=== PATIENT | female | born 1970 | race African-American/Black ===

== ENCOUNTER 2019-12-06 09:54 | Observation (INO) | payer MEDICAID, OTHER ==
--- OUTSIDE RECORDS SUMMARY | 2019-12-06 10:06 | XMS REPORT | Summary of Care ---
:1970 Author Organization [facility] Address [address] [place] [address] Care Team Providers Name Role Phone Darcie Villatoro Primary Care Provider Crys Grider-Attributed Pcp Reason for Referral MRI/CAT/PET Scan (Routine) Status Reason Specialty Diagnoses / Referred By Referred To Procedures Contact Contact Authorized Radiology Diagnoses Generalized abdominal pain Ria Anaya MD [address] Procedures CT ABDOMEN PELVIS WITH IV CONTRAST [address] [facility] [address] [place], [place] [id number] [place] [phone] Phone: Reason for Visit Reason Comments Follow Up liquid diet, sharp abd pain Encounter Details Date Type Department Care Team Description 12/04/2019 Office Visit Ria Leiva MD Diarrhea, unspecified type (Primary Dx); Gastroenterology/Hepa [address] [address] [place] [address] [address] [facility] [phone] [place] [address] [phone] Allergies Active Allergy Reactions Severity Noted Date Comments Morphine Other 11/23/2017 Procaine Other 11/04/2009 Sweats, shakes,vomit Oxycodone Unknown Reaction 06/20/2016 Penicillins Unknown Reaction 12/27/2007 documented as of this encounter (statuses as of 12/04/2019) Medications Medication Sig Dispensed Refills Start Date End Date Status nicotine transdermal Place 1 Patch 30 Patch 1 03/29/2018 Active patch-daily (NICODERM onto skin DAILY. CQ) 14 MG/24HR Transdermal PATCH 24 HR Additional Information Patient taking differently: 7 mg Transdermal DAILY, Reported on 07/16/2018 8 :33 AM Ferrous Sulfate (IRON) 325 (65 Take 325 mg by mouth 30 Tab 5 06/13/2018 Active Fe) MG Oral TabIndications: Iron DAILY. deficiency anemia, unspecified iron deficiency anemia type aspirin 81 MG Oral Chew Tab Take 1 Tab by mouth 30 Tab 0 02/17/2019 Active DAILY. albuterol (PROVENTIL, VENTOLIN) 3 mL by 100 vial 2 03/25/2019 Active (2.5 MG/3ML) 0.083% Inhalation Inhalation-SVN route Nebu SolnIndications: Bullous EVERY SIX HOURS emphysema (HCC), Stage 2 NEEDED (sob/wheeze). moderate COPD by GOLD classification (HCC) atorvastatin (LIPITOR) 20 MG Take 1 Tab by mouth 90 Tab 1 03/25/2019 Active Oral TabIndications: Pure DAILY. Appt needed hypercholesterolemia for further refills buPROPion (WELLBUTRIN XL) 300 MG Take 1 Tab by mouth 90 Tab 1 03/25/2019 Active Oral TABLET SR 24 HRIndications: DAILY. Smoking pantoprazole (PROTONIX) 40 MG Take 1 Tab by mouth 90 Tab 1 03/25/2019 Active Oral Tab EC DAILY. azithromycin (ZITHROMAX) 250 MG Take 2 pills on the 6 Tab 0 08/22/2019 Active Oral Tab first day and 1 pill each day for 4 days albuterol HFA (VENTOLIN HFA) 108 Take 2 Puffs by 1 Inhaler 5 08/29/2019 Active (90 Base) MCG/ACT Inhalation inhalation EVERY SIX Aero SolnIndications: Bullous HOURS NEEDED (as emphysema (HCC), Stage 2 needed for wheeze). moderate COPD by GOLD classification (HCC) azelastine (ASTELIN) 0.1 % Nasal INSTILL 1 SPRAY INTO 30 mL 1 10/15/2019 Active SolutionIndications: Postnasal EACH NOSTRIL TWICE A drip DAY lisinopril (PRINIVIL, ZESTRIL) Take 1 Tab by mouth 90 Tab 0 11/13/2019 Active 10 MG Oral Tab DAILY. Needs office follow up for any further refills budesonide-formoterol fumarate Take 2 INHL by 3 Inhaler 1 11/17/2019 Active (SYMBICORT) 160-4.5 MCG/ACT inhalation TWICE Inhalation AerosolIndications: DAILY. Stage 2 moderate COPD by GOLD classification (HCC) albuterol (PROVENTIL, VENTOLIN) 3 mL by 360 mg 3 11/17/2019 Active (2.5 MG/3ML) 0.083% Inhalation Inhalation-SVN route Nebu Soln EVERY SIX HOURS. Shortness of breath/wheeze documented as of this encounter (statuses as of 12/04/2019) Active Problems Problem Noted Date Elevated LFTs 04/19/2018 Dense breasts 04/10/2018 Cervical radiculopathy 06/12/2017 Left shoulder pain 06/12/2017 Rheumatoid factor positive 06/24/2016 Nodule of apex of right lung 04/27/2016 Overview: Nodular opacities; repeat chest CT recommended 10/2016 Synovial cyst of right popliteal space 04/27/2016 Suprapatellar bursitis of right knee 04/27/2016 Bullous emphysema 04/28/2014 COPD, moderate 04/17/2012 Esophageal reflux 12/27/2007 Other and unspecified hyperlipidemia 12/27/2007 Panic disorder without agoraphobia 12/27/2007 Smoking Arthropathy Umbilical hernia without obstruction and without gangrene documented as of this encounter (statuses as of 12/04/2019) Resolved Problems Problem Noted Date Resolved Date Chest pain 08/08/2017 05/29/2018 Overview: Stress echocardiogram 05/15/2014 FINAL IMPRESSION: Decreased exercise tolerance. This test is equivocal for exercise induced ischemia by symptoms and LIKELY negative by ECHO and ECG criteria at target heart rate and low workload Clinical correlation advised Holter 06/08/2014 INDICATION: Palpitations. ? FINDINGS: 1. Normal sinus rhythm. Minimum heart rate of 68 beats per minute, maximum is 141 beats per minute. 2. Less than 1% of the beats were extra ventricular beats. 3. Less than 1% of the beats were extra supraventricular beats. 4. No atrial fibrillation, ventricular tachycardia, pauses or blocks were noted. 5. The patient reported symptoms of chest pain and shortness of breath that did not correlate with any arrhythmias. ? SUMMARY: 1. Normal Holter. 2. Symptoms reported do not correlate with any arrhythmias. ? Wrist pain, right 11/05/2014 03/20/2016 Pneumonia due to other specified organism(483.8) 04/09/2013 09/29/2013 Hyperthyroidism 03/27/2013 06/21/2016 Arrhythmia 12/09/2012 03/06/2016 Chronic airway obstruction, not elsewhere classified 12/27/2007 04/17/2012 Other spontaneous pneumothorax 12/27/2007 03/06/2016 Other chest pain 12/27/2007 04/17/2012 OTHER EMPHYSEMA 03/07/2005 04/17/2012 Normocytic anemia 07/13/2016 Underweight due to inadequate caloric intake 05/29/2018 documented as of this encounter (statuses as of 12/04/2019) Immunizations Name Administration Dates Next Due Influenza (IM) Preservative Free 05/22/2018, 07/09/2017 PNEUMOCOCCAL POLYSACCHARIDE VACCINE 07/09/2017 documented as of this encounter Social History Tobacco Use Types Packs/Day Years Used Date Current Every Day Smoker Cigarettes 2 30 Smokeless Tobacco: Never Used Comments: 1-2 packs per day Alcohol Use Drinks/Week oz/Week Comments Yes states 6 pack per week Sex Assigned at Date Recorded Not on file documented as of this encounter Last Filed Vital Signs Vital Sign Reading Time Taken Comments Blood Pressure 146/100 12/04/2019 10:47 AM EDT Pulse 84 12/04/2019 10:47 AM EDT Temperature - - Respiratory Rate - - Oxygen Saturation 99% 12/04/2019 10:47 AM EDT Inhaled Oxygen Concentration - - Weight 52.2 kg (115 lb) 12/04/2019 10:47 AM EDT Height 176.5 cm (5' 9.5") 12/04/2019 10:47 AM EDT Body Mass Index 16.74 12/04/2019 10:47 AM EDT documented in this encounter Patient Instructions Patient InstructionsRia Anaya MD - 12/04/2019 10:40 AM EDT1. bloodwork today 2. Stool studies 3. CT scan of the abdomen: we will try to get this today Ria Anaya MD documented in this encounter Progress Notes Ria Anaya MD - 12/04/2019 10:40 AM EDT PATIENT: Cristina Donohue : 1970 DATE OF SERVICE: 12/04/2019 REFERRING PRACTITIONER: Darcie Villatoro PRIMARY CARE PROVIDER: Darcie Villatoro CHIEF COMPLAINT: Chief Complaint Patient presents with ? Follow Up liquid diet, sharp abd pain Subjective HISTORY OF PRESENT ILLNESS: Cristina Donohue is a 49-y.o. female who presents as a referral from [facility] for abdominal pain. She reports that her symptoms started 2-3 days ago, with severe epigastric and lower abdominal pain, sharp, accompanied by diarrhea. She has been taking peptobismol, without much relief. Denies any fevers/chills, rectal bleeding. No nausea/vomiting. No urinary changes, shortness of breath, chest discomfort, cough. She has been taking in a liquid diet, as solid foods hurt more. Past Medical History: Diagnosis Date ? Anemia of other chronic disease ? Anxiety ? Arrhythmia 12/09/2012 ? Arthritis ? COPD (chronic obstructive pulmonary disease) ([facility]) 04/17/2012 ? Esophageal reflux 12/27/2007 ? Hyperlipidemia 12/27/2007 ? Hyperthyroidism ? Other spontaneous pneumothorax 12/27/2007 Due to bulla ? Panic disorder without agoraphobia 12/27/2007 ? Periodic limb movement Past Surgical History: Procedure Laterality Date ? BRONCHOSCOPY ? CHEST TUBE PLACEMENT (FOR ED USE) for spontaneous pneumothorax ? LEFT HEART CATH,ALLEGRA ERWIN [facility] ? [place] CHEST SURGERY PROCEDURE UNLISTED ? [place] LIGATION,FALLOPIAN TUBE W/ Family History Problem Relation Age of Onset ? Heart Mother CABG ? Kidney Disease Mother nephrectomy ? Diabetes Father ? Hypertension Father ? Heart Father ? Arthritis Father ? Cancer Father throat & stomach ca ? Colon Cancer Father ? Breast Cancer Maternal Aunt Current Outpatient Medications Medication Sig ? albuterol (PROVENTIL, VENTOLIN) (2.5 MG/3ML) 0.083% Inhalation Nebu Soln 3 mL by Inhalation-SVN route EVERY SIX HOURS NEEDED (sob/wheeze). ? albuterol (PROVENTIL, VENTOLIN) (2.5 MG/3ML) 0.083% Inhalation Nebu Soln 3 mL by Inhalation-SVN route EVERY SIX HOURS. Shortness of breath/wheeze ? albuterol HFA (VENTOLIN HFA) 108 (90 Base) MCG/ACT Inhalation Aero Soln Take 2 Puffs by inhalation EVERY SIX HOURS NEEDED (as needed for wheeze). ? aspirin 81 MG Oral Chew Tab Take 1 Tab by mouth DAILY. ? atorvastatin (LIPITOR) 20 MG Oral Tab Take 1 Tab by mouth DAILY. Appt needed for further refills ? azelastine (ASTELIN) 0.1 % Nasal Solution INSTILL 1 SPRAY INTO EACH NOSTRIL TWICE A DAY ? azithromycin (ZITHROMAX) 250 MG Oral Tab Take 2 pills on the first day and 1 pill each day for 4 days ? budesonide-formoterol fumarate (SYMBICORT) 160-4.5 MCG/ACT Inhalation Aerosol Take 2 INHL byinhalation TWICE DAILY. ? buPROPion (WELLBUTRIN XL) 300 MG Oral TABLET SR 24 HR Take 1 Tab by mouth DAILY. ? Ferrous Sulfate (IRON) 325 (65 Fe) MG Oral Tab Take 325 mg by mouth DAILY. ? lisinopril (PRINIVIL, ZESTRIL) 10 MG Oral Tab Take 1 Tab by mouth DAILY. Needs office followup for any further refills ? nicotine transdermal patch-daily (NICODERM CQ) 14 MG/24HR Transdermal PATCH [address] 1 Patch onto skin DAILY. (Patient taking differently: Place 7 mg onto skin DAILY.) ? pantoprazole (PROTONIX) 40 MG Oral Tab EC Take 1 Tab by mouth DAILY. No current facility-administered medications for this visit. Allergies Allergen Reactions ? Morphine Other ? Novacaine [Procaine] Other Sweats, shakes,vomit ? Oxycodone Unknown Reaction ? Penicillins Unknown Reaction Social History Socioeconomic History ? Marital status: Spouse name: Not on file ? Number of children: Not on file ? Years of education: Not on file ? Highest education level: Not on file Occupational History ? Not on file Social Needs ? Financial resource strain: Not on file ? Food insecurity Worry: Not on file Inability: Not on file ? Transportation needs Medical: Not on file Non-medical: Not on file Tobacco Use ? Smoking status: Current Every Day Smoker Packs/day: 2.00 Years: 30.00 Pack years: 60.00 Types: Cigarettes ? Smokeless tobacco: Never Used ? Tobacco comment: 1-2 packs per day Substance and Sexual Activity ? Alcohol use: Yes Comment: states 6 pack per week ? Drug use: Yes Frequency: 2.0 times per week Types: Prescription, Marijuana ? Sexual activity: Yes Partners: Male Lifestyle ? Physical activity Days per week: Not on file Minutes per session: Not on file ? Stress: Not on file Relationships ? Social connections Talks on phone: Not on file Gets together: Not on file Attends oriental orthodox service: Not on file Active member of club or organization: Not on file Attends meetings of clubs or organizations: Not on file Relationship status: Not on file ? Intimate partner violence Fear of current or ex partner: Not on file Emotionally abused: Not on file Physically abused: Not on file Forced sexual activity: Not on file Other Topics Concern ? Not on file Social History Narrative ? Not on file REVIEW OF SYSTEMS: All remaining review of systems was negative except for as noted in the history of present illness/subjective. Objective PHYSICAL EXAMINATION: VITALS: BP (!) 146/100 (BP Location: Right arm, Patient Position: Sitting) | Pulse 84 | Ht 5' 9.5" (1.765 m) | Wt 115 lb (52.2 kg) | SpO2 99% | BMI 16.74 kg/m Body mass index is 16.74 kg/m. GENERAL: alert, oriented, mildly distressed HEENT: No scleral icterus, MMM Psych: Affect normal Neck: no lymphadenopathy LUNGS: clear to auscultation bilaterally. HEART: regular rhythm, no murmurs, no gallops, no rubs. ABDOMEN: general exam: mildly distended, guarding, mild rebound tenderness Extrmities: no edema Skin: clear Neuro: gait normal, a&o x 3 RECTAL: exam deferred. IMPRESSION: ICD-9-CM ICD-10-CM 1. Diarrhea, unspecified type 787.91 R19.7 CBC NO DIFFERENTIAL COMPREHENSIVE METABOLIC PANEL AMYLASE LIPASE C. DIFFICILE (STOOL) STOOL CULTURE 2. Generalized abdominal pain 789.07 R10.84 CBC NO DIFFERENTIAL COMPREHENSIVE METABOLIC PANEL AMYLASE LIPASE C. DIFFICILE (STOOL) STOOL CULTURE CT ABDOMEN PELVIS WITH IV CONTRAST Plan PLAN: 1. bloodwork 2. Stool studies 3. CT abd/pelvis today Follow up: pending above results Author: Ria Anaya MD 12/04/2019 11:38 documented in this encounter Plan of Treatment Date Type Specialty Care Team Description 12/04/2019 Ancillary Procedure Radiology 01/06/2020 Office Visit Pulmonary Jaclyn Carvalho MD [address] [place] [address] [phone] Name Type Priority Associated Diagnoses Date/Time CBC NO DIFFERENTIAL Lab Routine Generalized abdominal 12/04/2019 11:17 AM pain EDT Diarrhea, unspecified type COMPREHENSIVE METABOLIC Lab Routine Generalized abdominal 12/04/2019 11:17 AM PANEL pain EDT Diarrhea, unspecified type AMYLASE Lab Routine Generalized abdominal 12/04/2019 11:17 AM pain EDT Diarrhea, unspecified type LIPASE Lab Routine Generalized abdominal 12/04/2019 11:17 AM pain EDT Diarrhea, unspecified type Name Type Priority Associated Diagnoses Order Schedule C. DIFFICILE (STOOL) Lab Routine Generalized abdominal 1 Occurrences starting pain 12/04/2019 until Diarrhea, unspecified 06/01/2020 type STOOL CULTURE Lab Routine Generalized abdominal 1 Occurrences starting pain 12/04/2019 until Diarrhea, unspecified 06/01/[address] ABDOMEN PELVIS WITH Imaging Routine Generalized abdominal Expected: 04/2020, IV CONTRAST pain Expires: 12/03/2020 Health Maintenance Due Date Last Done Comments DTaP/Tdap/Td Vaccines (1981 Tdap) MAMMOGRAM (SCREENING) 04/03/2019 04/03/2018, 02/24/2014, 11/04/2008 DEPRESSION SCREENING 03/24/2020 03/24/2019, 04/28/2014 INFLUENZA VACCINE (Season 04/27/2020 05/22/2018, 07/09/2017 Ended) PAP SMEAR 06/30/2022 06/30/2019, 10/24/2012, 12/06/2004 LIPID DISORDER SCREENING 04/11/2024 04/11/2019, 03/25/2019, 03/08/2018, Additional history exists PNEUMOCOCCAL 0-64 YRS Completed 07/09/2017 HEPATITIS A IMMUNIZATION Aged Out No longer eligible SERIES based on patient's age to complete this topic HPV IMMUNIZATION SERIES Aged Out No longer eligible based on patient's age to complete this topic MENINGOCOCCAL VACCINE IMM Aged Out No longer eligible based on patient's age to complete this topic documented as of this encounter Goals Goal Patient Goal Associated Recent Patient-Stated? Author Type Problems Progress Smoking COPD No Jory Villatoro MD Note: This is an individualized treatment (COPD) goal for Cristina Donohue: Quit smoking immediately! Your provider has information and resources that may help you to quit. Keep immunizations current Lifestyle No Darcie Villatoro MD Note: This is an individualized lifestyle goal for Cristina Donohue: Please be sure to keep up-to-date on recommended immunizations. For example, this would include a yearly influenza vaccine. Immunization status can be seen by looking at the Health Maintenance sections of your [facility], Plan of Care, and any After Visit Summaries. Take all prescribed medications as Self-management No Darcie Villatoro MD directed Note: This is an individualized self-management goal for Cristina Starkeywalski: Please take all prescribed medications as directed. 1. Do not skip doses. If you cannot afford your medications, talk with your doctor. 2. Use a pill reminder system such as a pill box if needed. Your pharmacist can help you with this. 3. Contact your Pharmacy 5 days before your medication runs out. If you cannot take your medications for any reasons, talk with your doctor. 4. Please bring all of your medication bottles and inhalers (or a list of all your medications/inhalers) with you to every visit. Potential barriers to meeting all of your care plan goals will continue to be addressed on an ongoing basis. documented as of this encounter Results Not on filedocumented in this encounter Visit Diagnoses Diagnosis Generalized abdominal pain Abdominal pain, generalized Diarrhea, unspecified type documented in this encounter (Home) [address] [facility] [phone] [place], [place] (Work) [id number] documented as of this encounter
[2019-12-06] MEDS ORDERED: NS 0.9% 1000 ML** 1,000 ML IV ONE (10:18)
[2019-12-06] MEDS ORDERED: fentaNYL* 50 MCG/ML 2 ML VIAL (100 MCG VIAL) IV SLOW PU ONE (10:19)
[2019-12-06] MEDS ORDERED: metroNIDAZOLE IV 500 MG/100ML* 500 MG/100 ML BAG IVPB ONE (10:20)
[2019-12-06] MEDS ORDERED: Ciprofloxacin 400MG IVPREMIX(* 400 MG/200 ML BAG IVPB ONE (10:20)
--- NOTE | 2019-12-06 10:21 | ED ---
Abdominal Pain/Female - HPI Summary HPI Summary: This pt is a 49 Y/O F presenting to [facility] with a CC of RUQ abdominal pain that is rated an 8/10 in severity. She states that the pain started on 11/29/2019 and has been increasing in severity since. She states that on 12/04/2019 she went to a clinic in [place] and received blood tests and a CT scan which were positive for appendicitis. She states that she avoided the hospital and hoped that the pain would disappear but it did not. She also states having R sided radiated back pain, nausea, chills, diarrhea, and decreased appetite. She states that the last time she states that she drank water today. She denies any fevers, headaches, SOB, CP, and myalgia. She states that she smokes tobacco and drinks 2-3 cans per day. She has no aggravating or alleviating factors. She has a PMHx of HTN and COPD. - History of Current Complaint Chief Complaint: Aparna Stated Complaint: FLANK PAIN PER PT Time Seen by Provider: 12/06/19 10:06 Hx Obtained From: Patient Hx Last Menstrual Period: ended 07/07/18 ?: No Onset/Duration: Sudden Onset, Lasting Weeks - 1, Still Present Timing: Constant Severity Initially: Mild Severity Currently: Severe Pain Intensity: 8 Pain Scale Used: 0-10 Numeric Location: Discrete At: RUQ Radiates: Yes Radiates to: Back Aggravating Factor(s): Nothing Alleviating Factor(s): Nothing Associated Signs and Symptoms: Positive: Negative - headaches, SOB, and myalgia , Back Pain, Nausea, Diarrhea, Other: - decreased appetite and chills. Negative : Fever, Chest Pain Allergies/Adverse Reactions: Allergies Allergy/AdvReac Type Severity Reaction Status Date / Time morphine Allergy See Comment Verified 12/06/19 09:59 Penicillins Allergy Hives/Diff. Verified 12/06/19 09:59 Breathing/I tching novacaine Allergy Fever Uncoded 10/20/19 09:24 Home Medications: Home Medications Budesonide/Formote 160/4.5(NF) [Symbicort 160/4.5 (NF)] 2 puff INH BID 06/13/16 [History Confirmed 02/20/19] Albuterol HFA INHALER* [Ventolin HFA Inhaler*] 2 puff INH Q6H PRN 02/06/19 [ History Confirmed 02/20/19] Atorvastatin* [Lipitor 20 MG*] 20 mg PO DAILY 02/06/19 [History Confirmed ] BuPROPion XL* [Bupropion XL*] 300 mg PO DAILY 02/06/19 [History Confirmed ] Pantoprazole TAB * [Protonix TAB*] 40 mg PO DAILY 02/06/19 [History Confirmed ] Lisinopril TAB* [Prinivil TAB 10 MG*] 10 mg PO DAILY #30 tab 02/07/19 [Rx Confirmed 02/20/19] Azelastine 0.1% 1 spray BOTH NARES BID PRN 02/19/19 [History Confirmed 02/20/19] Ferrous Sulfate TAB* 325 mg PO DAILY 02/19/19 [History Confirmed 02/20/19] Naproxen [Naproxen 375 mg tab] 375 mg PO BID PRN 02/19/19 [History Confirmed ] PMH/Surg Hx/FS Hx/Imm Hx Previously Healthy: Yes Endocrine/Hematology History: Reports: Hx Thyroid Disease - Hyperthyroid - no meds for it yet Denies: Hx Diabetes Cardiovascular History: Reports: Hx Angina, Hx Hypercholesterolemia, Hx Hypertension Denies: Hx Myocardial Infarction, Hx Pacemaker/ICD, Hx Peripheral Vascular Disease Respiratory History: Reports: Hx Asthma, Hx Chronic Obstructive Pulmonary Disease (COPD) History: Denies: Hx Chronic Renal Failure, Hx Renal Disease Musculoskeletal History: Denies: Hx Arthritis, Hx Rheumatoid Arthritis, Hx Osteoporosis, Hx Scoliosis Sensory History: Denies: Hx Hearing Aid Neurological History: Reports: Hx Headaches Denies: Other Neuro Impairments/Disorders Psychiatric History: Denies: Hx Panic Disorder - Surgical History Surgery Procedure, Year, and Place: tubal ligation -. COLLAPSED LUNG 1997. cardiac cath Infectious Disease History: No Infectious Disease History: Denies: Hx Hepatitis, Hx Human Immunodeficiency Virus (HIV), Hx of Known/ Suspected MRSA, Hx Shingles, Hx Tuberculosis, Hx Known/Suspected VRE, History Other Infectious Disease, Traveled Outside the [place] in Last 30 Days - Family History Known Family History: Positive: Hypertension Family History: aneurysms - Social History Occupation: Employed Full-time, Retired Lives: Alone Alcohol Use: Weekly Alcohol Amount: 2-3 times/week Hx Substance Use: Yes Substance Use Type: Reports: Marijuana Hx Tobacco Use: Yes Smoking Status (MU): Heavy Every Day Tobacco Smoker Type: Cigarettes Amount Used/How Often: 2 ppd Review of Systems Positive: Chills. Negative: Fever Negative: Chest Pain Negative: Shortness Of Breath Positive: Abdominal Pain - RUQ, Diarrhea, Nausea, Other - decreased appetite Negative: Myalgia Negative: Headache All Other Systems Reviewed And Are Negative: Yes Physical Exam - Summary Physical Exam Summary: Constitutional: Well-developed, Well-nourished, Alert. (-) Distressed Skin: Warm, Dry HENT: Normocephalic; Atraumatic Eyes: Conjunctiva normal Neck: Musculoskeletal ROM normal neck. (-) JVD, (-) Stridor, (-) Tracheal deviation Cardio: Rhythm regular, rate normal, Heart sounds normal; Intact distal pulses; The pedal pulses are 2+ and symmetric. Radial pulses are 2+ and symmetric. (-) Murmur Pulmonary/Chest wall: Effort normal. (-) Respiratory distress, (-) Wheezes, (-) Rales Abd: Soft, Tender just lateral to the umbilicus on the right without rebound or guarding. (-) Distension, (-) Rebound Musculoskeletal: (-) Edema Lymph: (-) Cervical adenopathy Neuro: Alert, Oriented x3 Psych: Mood and affect Norm Triage Information Reviewed: Yes Vital Signs On Initial Exam: Initial Vitals Temp Pulse Resp BP Pulse Ox 97.8 F 92 16 151/116 100 12/06/19 09:57 12/06/19 09:57 12/06/19 09:57 12/06/19 09:57 12/06/19 09:57 Vital Signs Reviewed: Yes Procedures - Sedation Patient Received Moderate/Deep Sedation with Procedure: No Diagnostics - Vital Signs Vital Signs Temp Pulse Resp BP Pulse Ox 12/06/19 09:57 97.8 F 92 16 151/116 100 - Laboratory Result Diagrams: 12/06/19 10:47 12/06/19 10:47 Lab Statement: Any lab studies that have been ordered have been reviewed, and results considered in the medical decision making process. - Ultrasound Gallbladder US Ultrasound Interpretation Completed By: Radiologist Summary of Ultrasound Findings: Negative right upper quadrant ultrasound. Negative for biliary dilatation. Negative for cholelithiasis. No conspicuous stones. within the visualized segment of the nondilated common bile duct. ED physician has reviewed this report. Re-Evaluation - Re-Evaluation First Eval Re-Evaluation Time: 10:33 Change: Unchanged Comment: CT image was interpreted again by [facility] [employer] who took the pt's CT. The CT did not show any appendicitis but did show pelvic free fluid. Abdominal Pain Fem Course/Dx - Course Course Of Treatment: Patient checked in with possible appendicitis. Patient was worked up as an outpatient through [facility] and supposedly had a CT scan which showed appendicitis. Due to that, labs were performed and patient was given empiric antibiotics with ciprofloxacin and Flagyl. However, when I called [facility] to discuss CT findings she had a normal CT outside of mild free pelvic fluid. Patient had blood workperformed which showed a lipase of 280. Patient had an ultrasound which showed no evidence of gallstones. Patient is likely suffering from alcohol pancreatitis. Patient already failed outpatient management and will be admitted to the hospital for further workup and treatment. - Diagnoses Provider Diagnoses: Pancreatitis, Alcohol abuse - Provider Notifications Discussed Care Of Patient With: Christophe Berg Time Discussed With Above Provider: 13:05 Instructed by Provider To: Admit As Inpatient Admit/Transition Orders Completed By ED Provider: Yes Discharge ED - Sign-Out/Discharge Documenting (check all that apply): Patient Departure - Discharge Plan Condition: Good Disposition: ADMITTED TO [facility] Referrals: Darcie Villatoro MD [Primary Care Provider] - - Billing Disposition and Condition Condition: GOOD Disposition: Admitted to [facility] - Attestation Statements Document Initiated by Kristopher: Yes Documenting Scribe: Spenser Monique Provider For Whom Kristopher is Documenting (Include Credential): Kin Driver MD Scribe Attestation: Spenser Hatch, scribed for Kin Driver MD on 12/06/19 at 1325. Scribe Documentation Reviewed: Yes Provider Attestation: The documentation as recorded by the Spenser oleary accurately reflects the service I personally performed and the decisions made by me, Kin Driver MD Status of Scribe Document: Viewed
[2019-12-06 10:54] LABS: ABS Eosinophils 0.1 10^3/ul (0-0.6); ABS Lymphocytes 1.1 10^3/ul (1.0-4.8); ABS Monocytes 0.4 10^3/ul (0-0.8); ABS Neutrophils 1.1 10^3/ul (1.5-7.7); Eosinophil % 2.4 %; Hematocrit 36 % (35-47); Hemoglobin 12.5 g/dL (12.0-16.0); Lymphocyte % 41.4 %; Mean Corpuscular HGB Conc 35 g/dL (31-36); Mean Corpuscular Hemoglobin 31 pg (27-31); Mean Corpuscular Volume 88 fL (80-97); Mean Platelet Volume 8.4 fL (7.4-10.4); Nucleated Red Blood Cells % 0.2; Platelet Count 114 10^3/uL (150-450); Red Blood Count 4.06 10^6 /uL (3.70-4.87); Red Cell Distribution Width 13 % (10-15); White Blood Count 2.7 10^3/uL (3.5-10.8)
[2019-12-06 11:10] LABS: Albumin 3.7 g/dL (3.2-5.2); Albumin/Globulin Ratio 1.2 (1-3); BUN/Creatinine Ratio 4.8 (8-20); C Reactive Protein 6.54 mg/L (<8.01); Calcium 9.2 mg/dL (8.6-10.3); EGFR African American 123.8 (>60); EGFR Non-African American 102.3 (>60); Potassium 3.2 mmol/L (3.5-5.0); Total Bilirubin 0.6 mg/dL (0.2-1.0); Total Protein 6.7 g/dL (6.4-8.9)
[2019-12-06] MEDS ORDERED: Acetaminophen TAB* 325 MG PO PRN (13:52)
[2019-12-06] MEDS ORDERED: Albuterol 2.5 MG/3 ML NEB.SOL* (0.083%) INH PRN (13:52)
[2019-12-06] MEDS ORDERED: Thiamine INJ* 100 MG/ML 2 ML VIAL IM ONE (14:47)
[2019-12-06] MEDS ORDERED: LORazepam TAB(*) 1 MG PO SCH (15:00)
[2019-12-06 15:06] LABS: Magnesium 1.6 mg/dL (1.9-2.7)
[2019-12-06] MEDS ORDERED: Magnesium Sulfate 2 GM IV* 2 GM/50 ML BAG IVPB ONE (15:12)
[2019-12-06] MEDS: Enoxaparin(*) 40 MG/0.4 ML SYR SUBCUT SCH (15:58)
[2019-12-06] MEDS: HYDROcodone/ACETAMIN 5-325 MG* 1 TAB PO PRN ×2 (15:59→22:16)
[2019-12-06] MEDS: NS 0.9% 1000 ML** 1,000 ML IV SCH (15:59)
[2019-12-06] MEDS: Folic Acid TAB* 1 MG PO SCH (16:38)
--- NOTE | 2019-12-06 16:49 | HP ---
CC: Dr. Villatoro; Dr. Anaya, , [facility] HISTORY AND PHYSICAL: DATE OF ADMISSION: 12/06/19 PROVIDER: Viviane Pettit NP PRIMARY CARE PROVIDER: Dr. Villatoro. ATTENDING PHYSICIAN WHILE IN THE HOSPITAL: Dr. Christophe Berg* (dictated by Viviane Pettit NP). CHIEF COMPLAINT: Abdominal pain. HISTORY OF PRESENT ILLNESS: Ms. Donohue is a 49-year-old female with a past medical history significant for hypertension, hyperlipidemia, COPD, anxiety, GERD, hyperthyroid, and anemia of chronic disease, who presented to the emergency room with complaints of abdominal pain. The patient reports that on Sunday she ate cheese which she reports that she is allergic to. She reports shortly after that she started with vomiting and upper abdominal pain. She reports that the pain got progressively worse. She followed up with her GI doctor, Dr. Anaya, from [facility] on . At that time, she had labs and a CT of the abdomen and pelvis and was placed on a bland diet. She was told that her lipase was over 1000 and was an indication of possible (appendicitis). I suspect this is related to pancreatitis. The patient also reports that she was diagnosed with an ulcer approximately 12 years ago as well. She does report she continues to drink three to four 24-ounce beers 4 to 5 times a week. She reports that her last ingestion of alcohol was on . She does report that she drank her normal dose of alcohol on Sunday. She does report that she has been tolerating a bland diet at home, but continues to have abdominal pain. Due to the continued abdominal pain radiating to her back, she was instructed to come to the emergency room. While in the emergency room, she had routine lab work drawn. She was found to have a lipase of 280. She had an ultrasound of her gallbladder that showed no acute disease. Due to the patient's continued pain and concern for pancreatitis, Hospital Medicine was asked to see and evaluate her for admission. PAST MEDICAL HISTORY: Significant for: 1. Hyperlipidemia. 2. Hypertension. 3. COPD. 4. Anxiety. 5. GERD. 6. Hyperthyroidism. 7. Anemia of chronic disease. 8. History of gastric ulcer. 9. History of spontaneous pneumothorax. PAST SURGICAL HISTORY: 1. Chest tubes for pneumothorax x3. 2. Left heart catheterization. HOME MEDICATIONS: Include: 1. Albuterol nebulizer as needed for shortness of breath. 2. Albuterol inhaler 2 puffs every 6 hours as needed for shortness of breath and wheezing. 3. Pantoprazole 40 mg p.o. daily. 4. Lisinopril 10 mg p.o. daily. 5. Bupropion 300 mg p.o. daily. 6. Atorvastatin 20 mg p.o. daily. 7. Ferrous sulfate 325 mg p.o. daily. 8. Symbicort 160/4.5 two puffs twice daily. 9. Azelastine 0.1% one spray to both nares twice daily p.r.n. ALLERGIES: To MORPHINE, PENICILLINS, and NOVOCAIN. FAMILY HISTORY: Mom had history of an [place] at the age of 55 as well as pulmonary embolism. Father had a stent. Father with diabetes and father with metastatic esophageal cancer. SOCIAL HISTORY: The patient smokes 1-1/2 packs per day. She reports she drinks three to four 24-ounce beers 4 times a week. She does report occasional marijuana use. She is currently unemployed. She lives alone. She is a full code. Surrogate decision maker in the event she is unable to make her own decisions is Darrel Salter, his phone number is [phone], or her daughter, Shae. REVIEW OF SYSTEMS: The patient denies any fever, chills, unintended weight loss , chest pain, or edema. She does report a chronic cough, which is at baseline. No hemoptysis or shortness of breath. She does report some nausea. No vomiting since Sunday. She does report occasional diarrhea and upper epigastric abdominal pain that improved with IV medications in the emergency room. She denies any gross hematuria, dysuria, focal weakness, sensory loss, visual complaints. She does report occasional difficulty with swallowing and noted to have a nodule in the throat that is being worked up. She denies any arthralgias, myalgias, rashes, lesions, open sores, psychosis, or anxiety. PHYSICAL EXAMINATION GENERAL: At this time, Ms. Donohue is alert and oriented, resting on the stretcher in the emergency room. She is in no acute distress. VITAL SIGNS: Blood pressure 132/96, heart rate 73, respirations are 18, O2 saturation 99% on room air, temperature was 97.8. HEENT: Head is atraumatic, normocephalic. Eyes: EOMs are intact. Sclerae anicteric and not pale. Oral mucosa is moist. NECK: Supple. LUNGS: Clear to auscultation bilaterally. No wheezes, rales, or rhonchi. CARDIAC: S1, S2. Regular rate and rhythm. No murmurs, rubs, or gallops. ABDOMEN: Soft. Bowel sounds are active x4. She does have mild upper epigastric tenderness with palpation. EXTREMITIES: She is able to move all 4 extremities. There is no clubbing or cyanosis. NEUROLOGIC: She is awake, alert, oriented x3. Speech is clear. Thought process is intact. SKIN: Intact. DIAGNOSTIC STUDIES/LAB DATA: WBCs are 2.7, RBCs 4.06, hemoglobin 12.5, hematocrit is 36, platelet count is 114. Sodium 126, potassium 3.2, chloride 91 , carbon dioxide was 29, anion gap of 6, BUN was 3, creatinine 0.62, glucose was 92, calcium 9.2, magnesium 1.6. ASTs were 32, ALTs were 18, alkaline phosphatase was 77. C- reactive protein 6.54. Lipase was 280. She had a gallbladder ultrasound, radiologist's impression: Negative right upper quadrant ultrasound. Negative for biliary dilation. Negative for cholelithiasis. No conspicuous stones within the visualized segment of the nondilated common bile duct. ASSESSMENT AND PLAN: Ms. Donohue is a 49-year-old female with a past medical history significant for hypertension, hyperlipidemia, history of chronic obstructive pulmonary disease, anxiety, gastroesophageal reflux disease, and anemia of chronic disease, who presented to the emergency room with complaints of abdominal pain radiating to her back. 1. Abdominal pain. I suspect her abdominal pain is related to acute pancreatitis. The patient did follow up with her GI doctor on , due to her complaints of abdominal pain. At that time, she had lab work and a CT of the abdomen and pelvis. The CT of the abdomen and pelvis did not show any evidence of appendicitis, but did show free fluid in the pelvis. There were no other abnormalities. This is according to the ER record. At this time , I am obtaining the official CT report from [facility]. I did obtain lab work from [facility], which showed a lipase of 1844 and amylase of 262. The patient's repeat lipase today was 280. The patient did receive fentanyl in the emergency room and reports that her pain is feeling better. I will continue with IV fluids and pain medications orally. We will place her n.p.o. except for meds with sips of water and observe her overnight. Should her pain improve, we will resume her diet and recommend abstaining from drinking alcohol as this is likely related to alcohol abuse. 2. Hyponatremia. The patient is hyponatremic with a sodium of 126. I suspect this is possibly related to dehydration versus it is chronic hyponatremia due to alcohol abuse. She did receive normal saline 1000 cc in the emergency room. I am going to continue her on normal saline at 150 cc an hour and we will repeat a BMP in the a.m. 3. Thrombocytopenia. The patient does have mild thrombocytopenia with a platelet count of 114. She does have chronic thrombocytopenia. Again, I suspect this is related to alcohol abuse. We will continue to monitor this and repeat a CBC tomorrow. 4. Hypokalemia. The patient is hypokalemic with a potassium of 3.2. I will replace her potassium and repeat a BMP in the a.m. I suspect this is related to her chronic alcohol abuse as well as dehydration. 5. Chronic obstructive pulmonary disease. The patient should continue on Symbicort and albuterol as previously prescribed. 6. Hypertension. She should continue lisinopril as previously prescribed. 7. Hyperlipidemia. She can continue on atorvastatin as previously prescribed. 8. Anxiety. She should continue on Wellbutrin as previously prescribed. 9. Gastroesophageal reflux disease. She should continue on pantoprazole 40 mg daily as previously prescribed. 10. FEN: She will be n.p.o. except meds. 11. Code status: She is a full code. 12. DVT prophylaxis: I will place her on Lovenox subcu. Again, we will watch her platelet count closely. Should the platelet count drop below 100, I would recommend SCDs and stopping her Lovenox. TIME SPENT: Time spent on this admission was 60 minutes, greater than half that time was spent at the bedside reviewing events leading thus far to her hospitalization, performing physical exam, and reviewing my plan of care. I have discussed this with my attending, Dr. Christophe Berg, and he is in agreement with my plan. VIVIANE PETTIT, PLASTIC PRINTER [id number]/[facility] #: [id number] [facility]INGTON HOSPITALShashank
[2019-12-06] MEDS: KCL 20 MEQ/100 ML IVPREMIX* 20 MEQ/100 ML BAG IV SCH ×2 (17:28→20:49)
[2019-12-06] MEDS: Mometasone/Formoter 200/5 MDI INH SCH (20:52)
[2019-12-07 05:54] LABS: Hematocrit 35 % (35-47); Hemoglobin 11.8 g/dL (12.0-16.0); Mean Corpuscular HGB Conc 34 g/dL (31-36); Mean Corpuscular Hemoglobin 30 pg (27-31); Mean Corpuscular Volume 89 fL (80-97); Mean Platelet Volume 8.7 fL (7.4-10.4); Platelet Count 114 10^3/uL (150-450); Red Blood Count 3.96 10^6 /uL (3.70-4.87); Red Cell Distribution Width 13 % (10-15); White Blood Count 2.5 10^3/uL (3.5-10.8)
[2019-12-07] MEDS: Mometasone/Formoter 200/5 MDI INH SCH ×3 (05:57→19:36)
[2019-12-07] MEDS: NS 0.9% 1000 ML** 1,000 ML IV SCH ×3 (06:01→21:19)
[2019-12-07] MEDS: HYDROcodone/ACETAMIN 5-325 MG* 1 TAB PO PRN ×3 (06:02→21:21)
[2019-12-07 06:13] LABS: BUN/Creatinine Ratio 6.9 (8-20); Calcium 8.3 mg/dL (8.6-10.3); EGFR African American 133.7 (>60); EGFR Non-African American 110.5 (>60); Potassium 3.9 mmol/L (3.5-5.0)
[2019-12-07 06:26] LABS: ABS Lymphocytes 1.2 10^3/ul (1.0-4.8); ABS Monocytes 0.3 10^3/ul (0-0.8); ABS Neutrophils 0.9 10^3/ul (1.5-7.7); Eosinophil % 1.9 %; Nucleated Red Blood Cells % 0.1
[2019-12-07] MEDS: Folic Acid TAB* 1 MG PO SCH (08:48)
[2019-12-07] MEDS: Atorvastatin* 20 MG TAB PO SCH (08:48)
[2019-12-07] MEDS: BuPROPion XL* 300 MG TAB.XL PO SCH (08:48)
[2019-12-07] MEDS: Pantoprazole TAB * 40 MG TAB PO SCH (08:48)
[2019-12-07] MEDS: Lisinopril TAB* 10 MG PO SCH (08:48)
[2019-12-07] MEDS: Multivitamins/Minerals TAB PO SCH (08:48)
[2019-12-07] MEDS: Thiamine TAB* 100 MG TAB PO SCH (08:48)
--- NOTE | 2019-12-07 09:06 | PN ---
Subjective Date of Service: 12/07/19 Interval History: 49 year old woman with recent outpatient diagnosis of pancreatitis admitted with continued epigastric abdominal pain radiating to her back. Had decreased appetite which is a little better today, pain is nearly gone. Tolerating ice chips and sips. + flatus, no BM. Does drink alcohol in varying heavy amounts. Agrees to HIV test. Objective Active Medications: Acetaminophen (Tylenol Tab*) 650 mg PO Q4H PRN PRN Reason: MILD PAIN or TEMP > 100.4 Hydrocodone Bitart/Acetaminophen (Defiance 5-325 Tab*) 1 tab PO Q4H PRN PRN Reason: PAIN - MODERATE Last Admin: 12/07/19 06:02 Dose: 1 tab Albuterol (Ventolin 2.5 Mg/3 Ml Neb.Julia*) 2.5 mg INH [id number] AWAKE PRN PRN Reason: sob/wheezing Last Admin: 12/07/19 05:54 Dose: 2.5 mg Atorvastatin Calcium (Lipitor*) 20 mg PO DAILY [facility] Last Admin: 12/07/19 08:48 Dose: 20 mg Bupropion HCl (Bupropion Xl*) 300 mg PO DAILY [facility] Last Admin: 12/07/19 08:48 Dose: 300 mg Enoxaparin Sodium (Lovenox(*)) 40 mg SUBCUT Q24H [facility] Last Admin: 12/06/19 15:58 Dose: 40 mg Folic Acid (Folvite Tab*) 1 mg PO DAILY [facility] Last Admin: 12/07/19 08:48 Dose: 1 mg Sodium Chloride (Ns 0.9% 1000 Ml) 1,000 mls @ 150 mls/hr IV PER RATE [facility] Last Admin: 12/07/19 06:01 Dose: 150 mls/hr Lisinopril (Prinivil Tab*) 10 mg PO DAILY [facility] Last Admin: 12/07/19 08:48 Dose: 10 mg Lorazepam (Ativan Tab(*)) 0 - 6 mg PO .PER [facility] PROTOCOL [facility]; Protocol Mometasone Furoate/Formoterol Fumar (Dulera 200/5 Mdi*) 2 puff INH BID [facility]; Protocol Last Admin: 12/07/19 07:08 Dose: Not Given Multivitamins/Minerals (Theragran/Minerals Tab*) 1 tab PO DAILY [facility] Last Admin: 12/07/19 08:48 Dose: 1 tab Pantoprazole Sodium (Protonix Tab*) 40 mg PO DAILY [facility] Last Admin: 12/07/19 08:48 Dose: 40 mg Thiamine HCl (Vitamin B-1 Tab*) 100 mg PO DAILY [facility] Last Admin: 12/07/19 08:48 Dose: 100 mg Vital Signs - 8 hr 12/07/19 12/07/19 12/07/19 03:00 03:15 05:00 Temperature 36.2 C 36.4 C Pulse Rate 60 58 Respiratory 16 16 16 Rate Blood Pressure 127/83 121/76 (mmHg) O2 Sat by Pulse 100 100 Oximetry 12/07/19 12/07/19 12/07/19 05:58 06:02 07:58 Temperature 36.3 C Pulse Rate 62 65 Respiratory 16 16 16 Rate Blood Pressure 122/81 (mmHg) O2 Sat by Pulse 97 100 Oximetry 12/07/19 08:45 Temperature Pulse Rate Respiratory 18 Rate Blood Pressure (mmHg) O2 Sat by Pulse Oximetry Oxygen Devices in Use Now: None Eyes: No Scleral Icterus, PERRLA Ears/Nose/Mouth/Throat: Clear Oropharnyx Neck: NL Appearance and Movements; NL JVP Respiratory: Symmetrical Chest Expansion and Respiratory Effort, Clear to Auscultation Cardiovascular: NL Sounds; No Murmurs; No JVD, No Edema Abdominal: No Hepatosplenomegaly, - - +BS, non distended, mild epigastric tenderness to palpation, no rebound Lymphatic: No Cervical Adenopathy, No Axillary Adenopathy Extremities: No Edema Skin: No Rash or Ulcers Neurological: Alert and Oriented x 3, NL Sensation, NL Muscle Strength and Tone Result Diagrams: 12/07/19 05:26 12/07/19 05:26 Assess/Plan/Problems-Billing Assessment: - Patient Problems (1) Pancreatitis, acute Current Visit: Yes Status: Acute Code(s): K85.90 - ACUTE PANCREATITIS WITHOUT NECROSIS OR INFECTION, UNSP SNOMED Code(s): 363700743 Comment: improving, advance diet slowly and monitor for return of symptoms. Likely etoh related. Biliary US negative. Check TG. (2) Leukopenia Current Visit: Yes Status: Acute Code(s): D72.819 - DECREASED WHITE BLOOD CELL COUNT, UNSPECIFIED SNOMED Code(s): 65093174 Comment: with thrombocytopenia. Check HIV. (3) Alcohol abuse Current Visit: Yes Status: Acute Code(s): F10.10 - ALCOHOL ABUSE, UNCOMPLICATED SNOMED Code(s): 03436146 Comment: vitamin supplementation, WAM, encouraged cutting back (4) DVT prophylaxis Current Visit: Yes Status: Acute Code(s): Z29.9 - ENCOUNTER FOR PROPHYLACTIC MEASURES, UNSPECIFIED SNOMED Code(s): 439566494 Comment: enoxaparin (5) Full code status Current Visit: Yes Status: Acute Code(s): Z78.9 - OTHER SPECIFIED HEALTH STATUS SNOMED Code(s): 841517049 (6) COPD (chronic obstructive pulmonary disease) Current Visit: Yes Status: Acute Code(s): J44.9 - CHRONIC OBSTRUCTIVE PULMONARY DISEASE, UNSPECIFIED SNOMED Code(s): 59384502 Comment: continue home medications Points of Discussion: 35 minutes floor time >50% face to face in counseling regarding alcohol use
[2019-12-07 13:08] LABS: HIV 4th Generation Nonreactive (Nonreactive)
[2019-12-07] MEDS: Enoxaparin(*) 40 MG/0.4 ML SYR SUBCUT SCH (13:26)
[2019-12-08] MEDS: NS 0.9% 1000 ML** 1,000 ML IV SCH (04:05)
[2019-12-08] MEDS ORDERED: Calcium Carbonate CHEW TAB* 500 MG (TUMS) PO PRN (04:07)
[2019-12-08] MEDS: HYDROcodone/ACETAMIN 5-325 MG* 1 TAB PO PRN (06:18)
[2019-12-08] MEDS: Mometasone/Formoter 200/5 MDI INH SCH (08:02)
[2019-12-08] MEDS: Lisinopril TAB* 10 MG PO SCH (08:28)
[2019-12-08] MEDS: Thiamine TAB* 100 MG TAB PO SCH (08:28)
[2019-12-08] MEDS: Multivitamins/Minerals TAB PO SCH (08:28)
[2019-12-08] MEDS: BuPROPion XL* 300 MG TAB.XL PO SCH (08:28)
[2019-12-08] MEDS: Folic Acid TAB* 1 MG PO SCH (08:28)
[2019-12-08] MEDS: Pantoprazole TAB * 40 MG TAB PO SCH (08:28)
[2019-12-08] MEDS: Atorvastatin* 20 MG TAB PO SCH (08:28)
[2019-12-08 08:33] VITALS: BP 152/92
--- NOTE | 2019-12-08 10:07 | DS ---
CC: Dr. Villatoro; Nikko Justinhrie GI DISCHARGE SUMMARY: DATE OF ADMISSION: 12/06/19 DATE OF DISCHARGE: 12/08/19 PRIMARY CARE PHYSICIAN: Dr. Villatoro. PRIMARY DIAGNOSIS: Acute pancreatitis. SECONDARY DIAGNOSES: 1. Alcohol abuse, in brief remission. 2. Tobacco abuse, in brief remission. 3. Chronic obstructive pulmonary disease. 4. Hyperlipidemia. 5. Hypertension. 6. Gastroesophageal reflux disease. 7. Leukopenia and thrombocytopenia. DISCHARGE DIET ORDER: Continue to progress from soft, low-residue diet to regular diet as tolerated. Continue to abstain from alcohol. DISCHARGE ACTIVITY: Return to baseline activity as tolerated. SIGNIFICANT IMAGING STUDIES: Ultrasound of the gallbladder, 12/06/19, showed no biliary dilatation, no cholelithiasis, no stones in the common bile duct. SIGNIFICANT LABORATORY STUDIES: White blood cell count 2.5, platelets 114. Lipase 280, triglyceride s 98, HIV antibody negative. PRESENTATION AND HOSPITAL COURSE: A 49-year-old woman who drinks 3 to 4 Tallboys a day, who had deve loped epigastric pain as an outpatient. An outpatient CT scan done with Dr. Anaya that showed pancreat ic inflammation by report, elevated lipase over 1000 but had worsening abdominal pain and came to the ER on 12/06/19 with lipase of 280, had been n.p.o. here. Gallbladder ultrasound was unrevealing. Tr iglycerides were normal. Her pancreatitis was felt to be due to alcohol use. She had leukopenia, whi te count 2.5, platelets 114. HIV antibody was negative. While here, her diet was advanced slowly during the day, Sunday and Sunday and this morning had sig nificant increase in appetite and was eating a low-fat, low- residue breakfast without abdominal pain or nausea. She has not smoked while here. Has not required a nicotine patch but would like to try one at home. She identifies drinking with family as a cause of excessive alcohol use, is aware that she needs to s ubdue that particularly in the near term to prevent re-flare-up of her pancreatitis. She does not wa nt numbers for counseling or outpatient alcohol abstinence therapy. She will be seen by Social Work here. ISSUES FOR FOLLOWUP: Repeat CBC, consider DOROTHY testing as an outpatient in the next week with Dr. Celio bird. She will have an appointment with Dr. Villatoro this week and with Dr. Anaya in the next 2 wee ak. PHYSICAL EXAMINATION ON DAY OF DISCHARGE: Vital signs: Temperature 37, heart rate 65, respiratory r ate 20, blood pressure 152/92, oxygen saturation 100% on room air. General: She is awake, not in dis tress. Neurologic: She is oriented x3, follows all commands. HEENT: There is no conjunctival hemo rrhage. Oropharynx without lesions. Neck: Neck is supple without mass. Heart is regular rate and rhythm without murmurs, rubs, or gallops. Lung are clear to auscultation bilaterally. Abdomen: Soft , nontender, nondistended. There is no tenderness to palpation. There is no rebound. Skin: There i s no rash or splinter hemorrhage. Musculoskeletal: There is no spine tenderness to palpation or join t synovitis. DISCHARGE MEDICATIONS: 1. Lipitor 20 mg by mouth daily. 2. Symbicort 1 to 2 puffs twice daily. 3. Bupropion XL 300 mg by mouth daily. 4. Lisinopril 10 mg by mouth daily. 5. Pantoprazole 40 mg by mouth daily. 6. Albuterol HFA inhaler 2 puffs every 6 hours as needed for shortness of breath or wheezing. 7. Azelastine 0.1% one spray to both nostril twice daily. 8. Ferrous sulfate 325 mg by mouth daily. 9. Multivitamin 1 tablet by mouth daily. New medications: 1. Nicotine patch 14 mg patch apply and remove every 24 hours and do not smoke while using. 2. Thiamine 100 mg 1 tablet by mouth daily. REASONS TO RETURN TO THE HOSPITAL: Return if abdominal pain, fever, nausea, or inability to keep jon n fluids or food. [id number]/[facility] #: [id number]
== END 2019-12-08 10:00 | disposition home or self-care (01) ==
LOC: ED 09:54 → MEDTELE 13:50
PROVIDERS: ADMIT Internal Medicine; ATTEND Internal Medicine
DX: K85.90 Acute pancreatitis without necrosis or infection, unspecified (principal); F10.11 Alcohol abuse, in remission; F17.211 Nicotine dependence, cigarettes, in remission; J44.9 Chronic obstructive pulmonary disease, unspecified; E78.5 Hyperlipidemia, unspecified; I10 Essential (primary) hypertension; F41.9 Anxiety disorder, unspecified; K21.9 Gastro-esophageal reflux disease without esophagitis; D72.819 Decreased white blood cell count, unspecified; R51 Headache; R10.11 Right upper quadrant pain; J45.909 Unspecified asthma, uncomplicated; E78.00 Pure hypercholesterolemia, unspecified; D69.6 Thrombocytopenia, unspecified; E05.90 Thyrotoxicosis, unspecified without thyrotoxic crisis or storm; D64.9 Anemia, unspecified; F17.210 Nicotine dependence, cigarettes, uncomplicated; Z98.51 Tubal ligation status; Z87.11 Personal history of peptic ulcer disease; Z87.09 Personal history of other diseases of the respiratory system; Z88.0 Allergy status to penicillin; Z88.6 Allergy status to analgesic agent; Z79.899 Other long term (current) drug therapy; Z82.49 Family history of ischemic heart disease and other diseases of the circulatory system
CPT/HCPCS: 36415; 76705; 80048; 80053; 83690; 83735; 84478; 85025; 85060; 86140; 87389; 94640; 96361; 96365; 96366; 96367; 96372; 96375; 99284; A9270-GY; G0378; J0744; J1650; J3010; J3411; J3475; J3480

== ENCOUNTER 2020-01-26 09:50 | Inpatient (IN) ==
[2020-01-26] MEDS ORDERED: Ondansetron 4 mg VIAL 2 MG/ML 2 ml VIAL IV PRN (10:08)
[2020-01-26] MEDS ORDERED: diPHENhydraMINE IV 50 MG/ML 1 ml VIAL (BENADRYL) IV PRN (10:08)
[2020-01-26] MEDS: cefTRIAXone* 1 GM in NS 0.9% 50 ML BAG IVPB SCH (21:58)
[2020-01-27] MEDS ORDERED: Metoclopramide 5 MG/ML VIAL (10 mg) IV SLOW PU SCH
[2020-01-27] MEDS ORDERED: Ondansetron 4 mg VIAL 2 MG/ML 2 ml VIAL IV SCH
[2020-01-27] MEDS ORDERED: ROPIVACAINE 5 MG/ML 30 ML BTL (0.5%) INJ SCH
[2020-01-27] MEDS ORDERED: Dexamethasone IV 4 MG/ML VIAL 1 ml VIAL IV SLOW PU SCH
[2020-01-27] MEDS ORDERED: fentaNYL 100 mcg/2 ml 50 MCG/ML VIAL IV SCH ×2
[2020-01-27] MEDS ORDERED: Succinylcholine 200 mg VIAL 20 mg/ml 10 ml VIAL (200 mg) IV SCH
[2020-01-27] MEDS ORDERED: Midazolam 2 mg/2 ml VIAL 1 mg/ml 2 ml VIAL (2 mg) IV SLOW PU SCH
[2020-01-27] MEDS ORDERED: Labetalol IV 5 MG/ML 20 ml VIAL IV SCH
[2020-01-27] MEDS ORDERED: Lidocaine 2% PF 5 ML VIAL IV SCH
[2020-01-27] MEDS ORDERED: Propofol 10 MG/ML 20 ML BTL IV SCH
[2020-01-27] MEDS: D5LR 1000 ml BAG 1,000 ML IV SCH ×2 (00:36→19:51)
[2020-01-27] MEDS ORDERED: Nicotine Lozenge mini 2 MG LOZNG.MINI MT PRN (08:33)
[2020-01-27 09:03] LABS: ABS Eosinophils 0.1 10^3/ul (0-0.6); ABS Lymphocytes 1.8 10^3/ul (1.0-4.8); ABS Monocytes 0.6 10^3/ul (0-0.8); Eosinophil % 1.3 %; Hematocrit 31 % (35-47); Hemoglobin 10.4 g/dL (12.0-16.0); Lymphocyte % 29.3 %; Mean Corpuscular HGB Conc 34 g/dL (31-36); Mean Corpuscular Hemoglobin 30 pg (27-31); Mean Corpuscular Volume 87 fL (80-97); Mean Platelet Volume 7.1 fL (7.4-10.4); Nucleated Red Blood Cells % 0.1; Platelet Count 380 10^3/uL (150-450); Red Cell Distribution Width 13 % (10-15); White Blood Count 6.1 10^3/uL (3.5-10.8)
[2020-01-27 09:13] LABS: INR 1.05 (0.82-1.09)
[2020-01-27 09:23] LABS: BUN/Creatinine Ratio 12.3 (8-20); C Reactive Protein 12.52 mg/L (<8.01); Calcium 9.2 mg/dL (8.6-10.3); EGFR African American 117.2 (>60); EGFR Non-African American 96.9 (>60); Potassium 3.9 mmol/L (3.5-5.0)
[2020-01-27] MEDS: Nicotine PATCH 21 MG/24 HR PATCH TRANSDERM SCH (14:50)
[2020-01-27] MEDS ORDERED: ceFAZolin 2 GM PREMIX in ORs 0 GM/0 ML BAG ONE (15:21)
[2020-01-27] MEDS ORDERED: Clindamycin 900 MG/D5W BAG(*) 900 MG/50 ML BAG IVPB ONE (15:22)
[2020-01-27] MEDS ORDERED: Lactated Ringers 1000 ml BAG 1,000 ML IV SCH (16:00)
[2020-01-27] MEDS ORDERED: Naloxone 0.4 mg VIAL 0.4 mg/ml 1 ml VIAL IV PRN (17:09)
[2020-01-27] MEDS ORDERED: DiMENhydriNATE IV 50 mg/ml 1 ml VIAL IV PUSH PRN (17:09)
[2020-01-27] MEDS: fentaNYL 100 mcg/2 ml 50 MCG/ML VIAL IV PRN ×4 (18:07→19:19)
[2020-01-27] MEDS: cefTRIAXone* 1 GM in NS 0.9% 50 ML BAG IVPB SCH (20:31)
[2020-01-27] MEDS: oxyCODONE/Acetamin 5/325 mg TAB PO PRN (23:33)
[2020-01-28] MEDS: oxyCODONE/Acetamin 5/325 mg TAB PO PRN ×4 (07:24→23:48)
[2020-01-28] MEDS ORDERED: Nicotine PATCH 14 MG/24 HR PATCH TRANSDERM SCH (09:00)
[2020-01-28] MEDS ORDERED: Potassium Chlor 20 meq TAB.ER PO SCH (09:00)
[2020-01-28] MEDS ORDERED: CEFTRIAXONE 1 GM IV SCH (09:00)
[2020-01-28] MEDS: Multivitamins/Minerals TAB PO SCH (09:17)
[2020-01-28] MEDS: Nicotine PATCH 21 MG/24 HR PATCH TRANSDERM SCH (09:18)
[2020-01-28] MEDS ORDERED: Senna TAB 8.6 mg TAB PO PRN (13:01)
[2020-01-28] MEDS ORDERED: Polyethylene Glycol 3350 17 GM PACKET PO PRN (13:01)
[2020-01-28] MEDS: Magnesium Hydroxide LIQ 30 ML UDC PO PRN ×2 (13:58→21:30)
[2020-01-28] MEDS ORDERED: Magnesium Hydroxide LIQ 30 ML UDC PO SCH (14:00)
[2020-01-28] MEDS: cefTRIAXone* 1 GM in NS 0.9% 50 ML BAG IVPB SCH (20:57)
[2020-01-28] MEDS ORDERED: Miconazole VAG 200 mg SUPP VAGINAL SCH (21:00)
[2020-01-29] MEDS: oxyCODONE/Acetamin 5/325 mg TAB PO PRN ×2 (05:39→13:37)
[2020-01-29 06:06] LABS: Calcium 8.7 mg/dL (8.6-10.3); EGFR African American 107.6 (>60); EGFR Non-African American 88.9 (>60); Potassium 4.1 mmol/L (3.5-5.0)
[2020-01-29] MEDS: Magnesium Hydroxide LIQ 30 ML UDC PO PRN (08:45)
[2020-01-29] MEDS: Multivitamins/Minerals TAB PO SCH (08:46)
[2020-01-29] MEDS: Nicotine PATCH 21 MG/24 HR PATCH TRANSDERM SCH (08:46)
[2020-01-29] MEDS ORDERED: Potassium Chloride LIQUID 20 MEQ/15 ML LIQUID PO SCH (09:00)
[2020-01-29 11:49] VITALS: BP 116/74
[2020-01-29] MEDS ORDERED: cefTRIAXone* 1 GM in NS 0.9% 50 ML BAG IVPB SCH (14:00)
== END 2020-01-29 14:45 | disposition home health service (06) | DRG 313 ==
LOC: SSU 11:42
PROVIDERS: ADMIT Orthopaedic Surgery Adult Reconstructive Orthopaedic Surgery; ATTEND Internal Medicine

== ENCOUNTER 2021-02-03 04:39 | Inpatient (IN) ==
[2021-02-03] MEDS ORDERED: NS 0.9% 1000 ml BAG 1,000 ML IV ONE ×2 (06:03→10:05)
[2021-02-03] MEDS ORDERED: Ondansetron 4 mg VIAL 2 MG/ML 2 ml VIAL IV ONE (06:12)
[2021-02-03 06:36] LABS: ABS Lymphocytes 1.2 10^3/ul (1.0-4.8); ABS Monocytes 0.3 10^3/ul (0-0.8); Eosinophil % 0.6 %; Hematocrit 39 % (35-47); Hemoglobin 13.4 g/dL (12.0-16.0); Lymphocyte % 21.3 %; Mean Corpuscular HGB Conc 34 g/dL (31-36); Mean Corpuscular Hemoglobin 31 pg (27-31); Mean Corpuscular Volume 91 fL (80-97); Mean Platelet Volume 7.8 fL (7.4-10.4); Nucleated Red Blood Cells % 0.3; Platelet Count 217 10^3/uL (150-450); Red Blood Count 4.27 10^6 /uL (3.70-4.87); Red Cell Distribution Width 13 % (10-15); White Blood Count 5.6 10^3/uL (3.5-10.8)
[2021-02-03 06:52] LABS: ALT 33 U/L (7-52); Albumin 3.8 g/dL (3.2-5.2); Albumin/Globulin Ratio 1.3 (1-3); Alkaline Phosphatase 103 U/L (35-149); Blood Urea Nitrogen 5 mg/dL (6-24); C Reactive Protein < 1.00 mg/L (<8.01); CO2 Carbon Dioxide 28 mmol/L (22-32); Calcium 9.1 mg/dL (8.6-10.3); Chloride 99 mmol/L (101-111); EGFR African American 114.7 (>60); EGFR Non-African American 94.8 (>60); Glucose 116 mg/dL (70-100); Lipase 314 U/L (11.0-82.0); Magnesium 1.7 mg/dL (1.9-2.7); Sodium 134 mmol/L (135-145); Total Protein 6.8 g/dL (6.4-8.9)
[2021-02-03 06:58] LABS: HCG Pregnancy 4.36 mIU/mL
[2021-02-03 07:02] LABS: Anion Gap 7 mmol/L (2-11); Potassium 3.1 mmol/L (3.5-5.0)
[2021-02-03 07:25] LABS: AST 59 U/L (13-39)
[2021-02-03] MEDS ORDERED: Potassium Chlor 20 meq TAB.ER PO ONE (09:00)
[2021-02-03] MEDS ORDERED: Iohexol 300 (CONTRAST) 10 ML SDV IV ONE (09:10)
[2021-02-03] MEDS ORDERED: Orphenadrine Citrate INJ 30 mg/ml 2 ml VIAL (60 mg) IV ONE (09:27)
[2021-02-03 09:52] LABS: Urine Appearance Clear; Urine Bilirubin Negative (Negative); Urine Blood 1+ (Negative); Urine Color Yellow; Urine Glucose Negative (Negative); Urine Ketones Negative (Negative); Urine Nitrite Negative (Negative); Urine Protein Negative (Negative); Urine Specific Gravity 1.017 (1.002-1.030); Urine Urobilinogen Negative (Negative)
[2021-02-03 10:10] LABS: Urine Bacteria Absent (Absent); Urine Red Blood Cell Trace(0-2/hpf) (Absent); Urine Squamous Epithelial Cell Present (Absent); Urine White Blood Cell Trace(0-5/hpf) (Absent)
[2021-02-03] MEDS ORDERED: Ondansetron 4 mg VIAL 2 MG/ML 2 ml VIAL IV PRN (12:41)
[2021-02-03] MEDS ORDERED: Albuterol HFA INHALER 8 gm MDI INH PRN (12:47)
[2021-02-03] MEDS ORDERED: Albuterol 2.5mg/3 ml (0.083%) NEB.SOLN INH PRN (12:47)
[2021-02-03] MEDS ORDERED: Magnesium Sulfate 2 gm BAG 2 GM/50 ML BAG IVPB ONE (12:51)
[2021-02-03] MEDS: NS 0.9% 1000 ml BAG 1,000 ML IV SCH (15:01)
[2021-02-03] MEDS: Pantoprazole VIAL 40 MG VIAL IV SCH (15:02)
[2021-02-03] MEDS ORDERED: Nicotine PATCH 7 MG/24 HR PATCH TRANSDERM ONE (15:30)
[2021-02-03] MEDS: KCL 20 MEQ/100 ML IVPREMIX 20 MEQ/100 ML BAG IV SCH ×2 (16:14→19:04)
[2021-02-03] MEDS: HYDROcodone/ACETAMIN 5/325 mg TAB PO PRN (18:33)
[2021-02-03] MEDS: Mometasone/Formoter 200/5 MDI INH SCH (20:04)
[2021-02-04] MEDS: NS 0.9% 1000 ml BAG 1,000 ML IV SCH ×3 (01:44→17:55)
[2021-02-04] MEDS: HYDROcodone/ACETAMIN 5/325 mg TAB PO PRN ×4 (02:13→21:48)
[2021-02-04 05:46] LABS: ABS Eosinophils 0.1 10^3/ul (0-0.6); ABS Lymphocytes 1.1 10^3/ul (1.0-4.8); ABS Monocytes 0.3 10^3/ul (0-0.8); ABS Neutrophils 2.3 10^3/ul (1.5-7.7); Eosinophil % 2.7 %; Hematocrit 36 % (35-47); Hemoglobin 11.9 g/dL (12.0-16.0); Lymphocyte % 29.2 %; Mean Corpuscular HGB Conc 34 g/dL (31-36); Mean Corpuscular Hemoglobin 31 pg (27-31); Mean Corpuscular Volume 92 fL (80-97); Mean Platelet Volume 7.7 fL (7.4-10.4); Nucleated Red Blood Cells % 0.1; Platelet Count 166 10^3/uL (150-450); Red Blood Count 3.85 10^6 /uL (3.70-4.87); Red Cell Distribution Width 13 % (10-15); White Blood Count 3.8 10^3/uL (3.5-10.8)
[2021-02-04 06:03] LABS: Albumin 3.2 g/dL (3.2-5.2); Albumin/Globulin Ratio 1.3 (1-3); Calcium 8.5 mg/dL (8.6-10.3); EGFR African American 130.5 (>60); EGFR Non-African American 107.9 (>60); Globulin 2.4 g/dL (2-4); Magnesium 1.8 mg/dL (1.9-2.7); Potassium 4.1 mmol/L (3.5-5.0); Total Bilirubin 0.9 mg/dL (0.2-1.0); Total Protein 5.6 g/dL (6.4-8.9)
[2021-02-04] MEDS: Mometasone/Formoter 200/5 MDI INH SCH ×2 (07:08→20:38)
[2021-02-04] MEDS: Nicotine PATCH 7 MG/24 HR PATCH TRANSDERM SCH (08:26)
[2021-02-04] MEDS: Pantoprazole VIAL 40 MG VIAL IV SCH (13:17)
[2021-02-04] MEDS: Al Hydrox/Mg Hydrox/Simet LIQ 30 ML UDC PO PRN (18:47)
[2021-02-05] MEDS: NS 0.9% 1000 ml BAG 1,000 ML IV SCH ×3 (00:45→19:36)
[2021-02-05 04:30] LABS: ABS Eosinophils 0.1 10^3/ul (0-0.6); ABS Lymphocytes 0.9 10^3/ul (1.0-4.8); ABS Monocytes 0.2 10^3/ul (0-0.8); ABS Neutrophils 2.6 10^3/ul (1.5-7.7); Eosinophil % 2.1 %; Hematocrit 32 % (35-47); Lymphocyte % 24.1 %; Mean Corpuscular HGB Conc 34 g/dL (31-36); Mean Corpuscular Hemoglobin 31 pg (27-31); Mean Corpuscular Volume 92 fL (80-97); Mean Platelet Volume 7.9 fL (7.4-10.4); Nucleated Red Blood Cells % 0.1; Platelet Count 152 10^3/uL (150-450); Red Blood Count 3.54 10^6 /uL (3.70-4.87); Red Cell Distribution Width 13 % (10-15); White Blood Count 3.9 10^3/uL (3.5-10.8)
[2021-02-05 04:48] LABS: Albumin 3.1 g/dL (3.2-5.2); Albumin/Globulin Ratio 1.3 (1-3); Calcium 8.3 mg/dL (8.6-10.3); EGFR African American 183.1 (>60); EGFR Non-African American 151.4 (>60); Globulin 2.3 g/dL (2-4); Magnesium 1.6 mg/dL (1.9-2.7); Potassium 3.2 mmol/L (3.5-5.0); Total Bilirubin 0.7 mg/dL (0.2-1.0); Total Protein 5.4 g/dL (6.4-8.9)
[2021-02-05] MEDS ORDERED: Magnesium Sulf 4 GM/100 ML IV 4,000 MG/100 ML BAG IVPB ONE (08:23)
[2021-02-05] MEDS: HYDROcodone/ACETAMIN 5/325 mg TAB PO PRN ×2 (09:06→15:42)
[2021-02-05] MEDS: Nicotine PATCH 7 MG/24 HR PATCH TRANSDERM SCH (09:06)
[2021-02-05] MEDS: KCL 20 MEQ/100 ML IVPREMIX 20 MEQ/100 ML BAG IV SCH ×4 (09:10→19:50)
[2021-02-05] MEDS: Al Hydrox/Mg Hydrox/Simet LIQ 30 ML UDC PO PRN ×2 (09:36→19:35)
[2021-02-05] MEDS: Mometasone/Formoter 200/5 MDI INH SCH ×2 (11:31→20:29)
[2021-02-05] MEDS: Pantoprazole VIAL 40 MG VIAL IV SCH (15:05)
[2021-02-06] MEDS: HYDROcodone/ACETAMIN 5/325 mg TAB PO PRN ×2 (03:19→09:38)
[2021-02-06] MEDS: Al Hydrox/Mg Hydrox/Simet LIQ 30 ML UDC PO PRN (03:19)
[2021-02-06] MEDS: NS 0.9% 1000 ml BAG 1,000 ML IV SCH ×2 (03:19→10:19)
[2021-02-06 04:25] LABS: ABS Eosinophils 0.1 10^3/ul (0-0.6); ABS Lymphocytes 1.2 10^3/ul (1.0-4.8); ABS Monocytes 0.3 10^3/ul (0-0.8); ABS Neutrophils 2.4 10^3/ul (1.5-7.7); Eosinophil % 2.3 %; Hematocrit 31 % (35-47); Hemoglobin 10.5 g/dL (12.0-16.0); Lymphocyte % 28.8 %; Mean Corpuscular HGB Conc 34 g/dL (31-36); Mean Corpuscular Hemoglobin 31 pg (27-31); Mean Corpuscular Volume 92 fL (80-97); Mean Platelet Volume 7.8 fL (7.4-10.4); Platelet Count 134 10^3/uL (150-450); Red Blood Count 3.35 10^6 /uL (3.70-4.87); Red Cell Distribution Width 13 % (10-15)
[2021-02-06 04:41] LABS: Calcium 8.2 mg/dL (8.6-10.3); EGFR African American 144.6 (>60); EGFR Non-African American 119.5 (>60); Magnesium 1.9 mg/dL (1.9-2.7); Potassium 3.7 mmol/L (3.5-5.0)
[2021-02-06] MEDS: Nicotine PATCH 7 MG/24 HR PATCH TRANSDERM SCH (09:31)
[2021-02-06] MEDS: Mometasone/Formoter 200/5 MDI INH SCH (09:33)
[2021-02-06 11:16] VITALS: BP 113/77
== END 2021-02-06 14:25 | disposition left against medical advice (07) | DRG 282 ==
LOC: ED 04:39 → SSU 04:39 → OBSVTOIN 12:41 → SSU 16:55
PROVIDERS: ADMIT Internal Medicine; ATTEND Internal Medicine